=== PATIENT | female | born 1970 | race African-American/Black ===

== ENCOUNTER → 2017-02-20 | Outpatient (CLI) | payer OTHER, BC ==
[~2017-02-20] MED LIST: CEPHALEXIN500 M1 PO; DIFLUCAN200 MG PO; GLUCOPHAGE1000 MG PO; HCTZ 25MG TAB25 MG PO; LEVEMIR FLEX100 U/ML SQ; LINSEED OIL 1 ML1 ML; NOVOLOG FLEX100 U/ML SQ; PREDNISONE20 MG PO; PRILOSEC 20MG20 MG PO; QUASENSE 30 MCG1 TAB PO; VICTOZA6 MG/ML SQ; VITAMIN D31000 I1 PO
== END ==
LOC: MC.RAD 09:31
DX: Z12.31 Encounter for screening mammogram for malignant neoplasm of breast (principal)

== ENCOUNTER → 2018-01-09 | Outpatient (CLI) | payer BC, OTHER | LOC: MC.RAD 10:15 | DX: N63.20 Unspecified lump in the left breast, unspecified quadrant (principal); Z98.890 Other specified postprocedural states ==

== ENCOUNTER → 2018-01-20 | Outpatient (CLI) | payer BC, OTHER | LOC: MC.RAD 07:56 | DX: N63.20 Unspecified lump in the left breast, unspecified quadrant (principal) ==

== ENCOUNTER 2018-03-03 16:15 | Outpatient (RCR) | payer OTHER, BC | END 2018-03-05 13:11 | disposition home or self-care (01) | LOC: WSPT 16:15 | DX: M54.5 Low back pain (principal) ==

== ENCOUNTER 2018-10-14 07:00 | Outpatient (RCR) | payer OTHER, BC | END 2018-11-10 | disposition home or self-care (01) | LOC: WSPT | DX: M54.2 Cervicalgia (principal); Z79.82 Long term (current) use of aspirin; Z79.4 Long term (current) use of insulin; Z79.899 Other long term (current) drug therapy ==

== ENCOUNTER → 2019-03-04 | Outpatient (CLI) | payer OTHER | LOC: COL.RAD 10:30 | DX: M47.817 Spondylosis without myelopathy or radiculopathy, lumbosacral region (principal) ==

== ENCOUNTER → 2019-09-23 | Outpatient (CLI) | payer OTHER | LOC: MC.RAD 09:24 | DX: Z12.31 Encounter for screening mammogram for malignant neoplasm of breast (principal); Z98.82 Breast implant status ==

== ENCOUNTER → 2021-10-30 | Outpatient (CLI) | payer OTHER | LOC: MC.RAD 09:12 | DX: Z12.31 Encounter for screening mammogram for malignant neoplasm of breast (principal) ==

== ENCOUNTER → 2021-12-10 | Outpatient (RCR) | payer BC | END | disposition home or self-care (01) | LOC: PT.GENESIS | DX: M54.51 Vertebrogenic low back pain (principal) ==

== ENCOUNTER 2023-02-05 15:45 | Outpatient (RCR) | payer BC | END 2023-02-09 | disposition home or self-care (01) | LOC: PT.GENESIS | DX: M54.51 Vertebrogenic low back pain (principal) ==